=== PATIENT | female | born 1955 | race Caucasian/White ===

== ENCOUNTER 2017-01-26 23:25 | Emergency (ER) | payer MEDICARE, OTHER ==
[~2017-01-26 23:25] MED LIST: ALAVERT10 M1 PO; ALBUTEROL17 GM INH; AMOXICILLIN PO; ATENOLOL; ATENOLOL PO; ATENOLOL25 MG PO; AUGMENTIN PO; AUGMENTIN875 MG PO; CIPRO PO; CLARITIN10 M3 PO; CLARITIN10 MG; CLARITIN10 MG PO; CLEOCIN HCL300 M1 PO; CLEOCIN PO; CLINDAMYCIN HC300 MG PO; DELSYM30 MG/5 ML PO; DOXYCYCLINE HY100 M3 PO; DOXYCYCLINE150 MG PO; HYDROCODON-ACE1 EAC1 PO; HYDROCORTISONE30 G2 EXT; KCL PO; LEVAQUIN750 M1 PO; LOTRIMIN AF12 GM TOP; MEDROL PO; MUCINEX D ER T1 EACH PO; MUCINEX DM1 TAB.SR . PO; NASALIDE25 ML; PENICILLIN PO; ROBITUSSIN A-C-S1 ML DOB; TENORMIN25 M1 PO; VANCOMYCIN HCL1 GM IV; VIBRAMYCIN100 M1 PO; ZITHROMAX; ZITHROMAX PO; ZITHROMAX1 G/PKT PO
[2017-01-27 00:42] LABS: BASOPHIL% 0.9 % (0-2.5); EOSINOPHIL# 0.3 X10e3 (0-0.7); EOSINOPHIL% 4.7 % (0.0-7.0); HEMATOCRIT 37.3 % (35.0-45.0); HEMOGLOBIN 12.1 gm/dL (12.0-16.0); LYMPHOCYTE# 1.3 X10e3 (1.0-3.5); LYMPHOCYTE% 22.9 % (17.0-45.0); MEAN CELL VOLUME 87.6 FL (83-96); MEAN CORPUSCULAR HEMOGLOBIN 28.5 PG (28-34); MEAN CORPUSCULAR HGB CONC 32.5 g/dL (30-36); MEAN PLATELET VOLUME 10.6 FL (6.5-11.5); MONOCYTE# 0.4 X10e3 (0-1.0); MONOCYTE% 6.8 % (3.0-12.0); NEUTROPHIL# 3.5 X10e3 (1.5-7.1); NEUTROPHIL% 64.7 % (40-75); PLATELET COUNT 215 X10e3 (140-420); RED BLOOD COUNT 4.26 X10e (3.90-5.30); RED CELL DISTRIBUTION WIDTH 13.1 % (11.0-15.5); WHITE BLOOD COUNT 5.5 X10e3 (4.0-10.5)
[2017-01-27 00:50] LABS: DIFF IND NO
[2017-01-27 01:22] LABS: BLOOD UREA NITROGEN 14 mg/dL (9-23); CALCIUM SERUM 8.8 mg/dL (8.4-10.2); CARBON DIOXIDE 29 mmol/L (22-31); CHLORIDE 111 mmol/L (100-111); CREATININE SERUM 0.8 mg/dL (0.6-1.4); GLOM FILT RATE Estimated ABOVE60 mL/min (>60); GLUCOSE FASTING 92 mg/dL (70-110); POTASSIUM 3.9 mmol/L (3.5-5.1); SODIUM 142 mmol/L (135-145)
== END 2017-01-27 01:48 | disposition home or self-care (01) ==
LOC: CED 23:25
PROVIDERS: Emergency Medicine
DX: R21 Rash and other nonspecific skin eruption (principal); F41.9 Anxiety disorder, unspecified; I10 Essential (primary) hypertension; J45.909 Unspecified asthma, uncomplicated; Z79.899 Other long term (current) drug therapy; Z88.1 Allergy status to other antibiotic agents; Z88.2 Allergy status to sulfonamides
CPT/HCPCS: 36415; 80048; 85025; 99283